=== PATIENT | female | born 1995 | race Two or more races ===

== ENCOUNTER 2017-11-23 03:42 | Emergency (ER) | payer OTHER ==
[2017-11-23 04:03] LABS: ABSOLUTE BASOPHILS # (AUTO) 0.1 10^3/uL (0.0-0.2); ABSOLUTE EOSINOPHILS # (AUTO) 0.2 10^3/uL (0.0-0.6); ABSOLUTE LYMPHOCYTES (AUTO) 1.8 10^3/uL (0.5-4.7); ABSOLUTE MONOCYTES (AUTO) 0.4 10^3/uL (0.1-1.4); ABSOLUTE NEUT (AUTO) 4.7 10^3/uL (1.7-8.2); BASOPHILS % (AUTO) 0.8 % (0-2); EOSINOPHILS % (AUTO) 2.3 % (0-6); HEMATOCRIT 42.8 % (36.0-47.0); HEMOGLOBIN 14.3 g/dL (12.0-15.5); LYMPHOCYTES % (AUTO) 25.2 % (13-45); MEAN CORPUSCULAR HEMOGLOBIN 29.9 pg (27.0-33.4); MEAN CORPUSCULAR HGB CONC 33.4 g/dL (32.0-36.0); MEAN CORPUSCULAR VOLUME 90 fl (80-97); MONOCYTES % (AUTO) 5.1 % (3-13); PLATELET COUNT 222 10^3/uL (150-450); RED BLOOD COUNT 4.79 10^6/uL (3.72-5.28); RED CELL DISTRIBUTION WIDTH 13.8 % (11.5-14.0); SEGMENTED NEUTROPHILS % (AUTO) 66.6 % (42-78); TOTAL CELLS COUNTED % (AUTO) 100 %; WHITE BLOOD COUNT 7.1 10^3/uL (4.0-10.5)
[2017-11-23 04:11] LABS: ACETAMINOPHEN < 10 ug/mL (10-30); ALANINE AMINOTRANSFERASE 19 U/L (9-52); ALBUMIN 4.6 g/dL (3.5-5.0); ALCOHOL 59 mg/dL (NONE DETECTED); ALKALINE PHOSPHATASE 50 U/L (38-126); ANION GAP 15 (5-19); ASPARTATE AMINO TRANSFERASE 30 U/L (14-36); BILIRUBIN,DIRECT 0.3 mg/dL (0.0-0.4); BILIRUBIN,TOTAL 0.7 mg/dL (0.2-1.3); BLOOD UREA NITROGEN 9 mg/dL (7-20); CALCIUM 9.9 mg/dL (8.4-10.2); CARBON DIOXIDE 21 mmol/L (22-30); CHLORIDE 108 mmol/L (98-107); GLUCOSE 108 mg/dL (75-110); POTASSIUM 3.7 mmol/L (3.6-5.0); SALICYLATE < 1.0 mg/dL (2.0-20.0); SODIUM 144.1 mmol/L (137-145)
--- NOTE | 2017-11-23 06:16 | ER Document Report ---
ED General - General Chief Complaint: Overdose Stated Complaint: POSSIBLE OVERDOSE Time Seen by Provider: 11/23/17 03:52 Notes: Patient is a 22-year-old female with a past medical history of depression, anxiety, PTSD who presents after a suicide attempt. EMS was contacted by her boyfriend who came home from work and found her to be intoxicated, somnolent. He found a suicide note prompting him to suspect a suicide attempt. Patient has a history of prior suicide attempts in the past, most recent plan was 6 weeks ago although she did not follow through. She states the trigger for tonight's events was her ex- and her having an argument. She denies any coingestions other than alcohol and Robaxin. TRAVEL OUTSIDE OF THE [place] IN LAST 30 DAYS: No Past Medical History - General Information source: Patient - Social History Smoking Status: Current Some Day Smoker Chew tobacco use (# tins/day): No Frequency of alcohol use: Occasional Drug Abuse: None Lives with: Spouse/Significant other Family History: Reviewed & Not Pertinent Patient has suicidal ideation: No Patient has homicidal ideation: No Renal/ Medical History: Denies: Hx Peritoneal Dialysis Review of Systems - Review of Systems Notes: Constitutional: Negative for fever. HENT: Negative for sore throat. Eyes: Negative for visual changes. Cardiovascular: Negative for chest pain. Respiratory: Negative for shortness of breath. Gastrointestinal: Negative for abdominal pain, vomiting or diarrhea. Genitourinary: Negative for dysuria. Musculoskeletal: Negative for back pain. Skin: Negative for rash. Neurological: Negative for headaches, weakness or numbness. 10 point ROS negative except as marked above and in HPI. Physical Exam - Vital signs Vitals: Resp BP Pulse Ox 13 127/81 H 99 11/23/17 03:48 11/23/17 03:48 11/23/17 03:48 Interpretation: Normal Notes: PHYSICAL EXAMINATION: GENERAL: Well-appearing, well-nourished and in no acute distress. HEAD: Atraumatic, normocephalic. EYES: Pupils equal round and reactive to light, extraocular movements intact, sclera anicteric, conjunctiva are normal. ENT: nares patent, oropharynx clear without exudates. Moist mucous membranes. NECK: Normal range of motion, supple without lymphadenopathy LUNGS: Breath sounds clear to auscultation bilaterally and equal. No wheezes rales or rhonchi. HEART: Regular rate and rhythm without murmurs ABDOMEN: Soft, nontender, normoactive bowel sounds. No guarding, no rebound. No masses appreciated. EXTREMITIES: Normal range of motion, no pitting or edema. No cyanosis. NEUROLOGICAL: No focal neurological deficits. Moves all extremities spontaneously and on command. PSYCH: Tearful, anxious SKIN: Warm, Dry, normal turgor, no rashes or lesions noted. Course - Re-evaluation Re-evalutation: 11/23/17 06:11 Patient presents after a deliberate overdose on 2500 mg of Robaxin as well as alcohol in a suicide attempt. The patient states that her intention behind taking his medications was to kill herself. She has a known history of depression, anxiety, PTSD none of which are currently being treated. Given the patient's intention behind her nonlethal ingestion of Robaxin she has been placed on involuntary commitment. Medical screening exam and labs are noted to be unremarkable. She is cleared for evaluation and disposition by psychology services in the morning. - Vital Signs Vital signs: Temp Pulse Resp BP Pulse Ox 99.1 F 88 19 118/76 99 11/23/17 03:53 11/23/17 03:53 11/23/17 05:01 11/23/17 05:00 11/23/17 05:01 - Laboratory Result Diagrams: 11/23/17 03:17 11/23/17 03:17 Laboratory results interpreted by me: 11/23/17 03:17 Chloride 108 H Carbon Dioxide 21 L Salicylates < 1.0 L Acetaminophen < 10 L - EKG Interpretation by Me Additional EKG results interpreted by me: 11/23/17 06:11 Sinus rhythm. Rate 82. No ST elevations or depressions. QTC is 411. Discharge - Discharge Clinical Impression: Suicide attempt, Alcohol abuse Deliberate medication overdose Qualifiers: Encounter type: initial encounter Qualified Code(s): T50.902A - Poisoning by unspecified drugs, medicaments and biological substances, intentional self-harm , initial encounter Condition: Fair
[2017-11-23 08:19] LABS: APPEARANCE,URINE CLEAR; BILIRUBIN,URINE SMALL (NEGATIVE); COLOR,URINE YELLOW; GLUCOSE, URINE NEGATIVE (NEGATIVE); KETONES,URINE NEGATIVE (NEGATIVE); LEUKOCYTE ESTERASE,URINE LARGE (NEGATIVE); NITRITE,URINE NEGATIVE (NEGATIVE); PROTEIN,URINE NEGATIVE (NEGATIVE); URINE SPECIFIC GRAVITY 1.015; UROBILINOGEN,URINE NEGATIVE mg/dL (<2.0)
[2017-11-23 08:36] LABS: URINE AMPHETAMINES SCREEN NEGATIVE; URINE BARBITURATES SCREEN NEGATIVE; URINE BENZODIAZEPINES SCREEN NEGATIVE; URINE COCAINE SCREEN NEGATIVE; URINE MARIJUANA (THC) SCREEN NEGATIVE; URINE METHADONE SCREEN NEGATIVE; URINE PHENCYCLIDINE SCREEN NEGATIVE
--- NOTE | 2017-11-23 09:56 | PSYCHOLOGICAL NOTE ---
Psych Note - Psych Note Psych Note: Reason for consult: intentional overdose Patient is a 22-year-old female with a past medical history of depression, anxiety, PTSD who presents after a suicide attempt of taking 5 tablets of 500mg Robaxin. Patient reports that she arrived to [facility] ED via EMS. She reports that she came to [facility] because she tried to kill herself by taking a muscle relaxer. She confirms she was drinking alcohol also. She reports that her soon-to-be ex- and her were arguing. She reports they a month and a half ago and have no children. She disclosed that he knows exactly what to say; "he said a lot to hurt me I just wanted to end." Patient reports that she did start going to see a therapist however she is only had one appointment and was right before the storm. She denies ever being on any medications or having any previous suicide attempts. She reports that she has thought about it in the past however is never done anything. She reports she is glad that she came to [facility] and denies current thoughts of self-harm or wanting to kill herself. Patient has lived in [place] for 3-1/2 years she is originally from [place] however reports that she enjoys living here and does have a current boyfriend by the name of Adarsh. Clinician spoke with patient's boyfriend Adarsh who discloses that he knows the patient has been depressed a lot lately and just wants her to get better. He reports he is known her for 6 months. Patient is alert and orientated to person, place, time and circumstance. Mood is euthymic with congruent affect. Patient confirms intentional overdose after an argument with her soon-to-be ex-. She denies current suicidal ideation. She denies homicidal ideation. Delusions are absent behaviors congruent with an intact reality based presentation i.e. organized and linear thought process. Eye contact is well-maintained. Conversational speech was within normal rate, tone and prosody. Intellectual abilities appear to be within the average range. Attention and concentration were good. Insight, judgment, impulse control are fair. Indication recommendations per [facility]'s contracted psychiatrist Dr. Denise ANGELO are as follows Celexa 20 mg daily 311 (F32.9) unspecified depressive disorder V61.10 (Z63.0) relationship distress with spouse Impression\\plan: Patient recommended for rescind of IVC and is cleared from acute psychiatric services. Patient no longer meets IVC criteria per [place] GS 122C. Patient openly engages with clinician discusses previous evening's events. She reports while she has had passive suicidal ideation a few times in the past she denies ever having attempted previous. Patient had already reached out to prior to for therapeutic services, she is recommended to continue to engage with outpatient mental health services. Medication recommendations have been provided. Dr. Pruitt was consulted and the care and management of this patient; attending physician is in agreement with recommendations and disposition.
--- NOTE | 2017-11-23 09:59 | ER Document Report ---
Doctor's Note Notes: 11/23/17 09:57 Rounding Note: Patient seen and evaluted by myself. Patient here for suicide attempt. She ingested alcohol and robaxin. Today, Vital signs are stable. No issues overnight. Patient is resting comfortably in the bed. She has no complaints. Denies current suicidal or homicidal ideations. She also denies delusion or hallucinations. Patient is medically cleared for discharge or transfer. Behavioral health evaluated the patient. Comfortable with discharge later today.
[2017-11-23 12:06] VITALS: BP 116/77
--- NOTE | 2017-11-23 14:40 | EKG REPORT ---
SEVERITY:- NORMAL ECG - SINUS RHYTHM : Confirmed by: Georgette Boggs MD 23-Nov-2017 14:39:21
== END 2017-11-23 12:03 | disposition home or self-care (01) ==
LOC: ER 03:42
DX: T42.8X2A Poisoning by antiparkinsonism drugs and other central muscle-tone depressants, intentional self-harm, initial encounter (principal); T51.92XA Toxic effect of unspecified alcohol, intentional self-harm, initial encounter; Y92.009 Unspecified place in unspecified non-institutional (private) residence as the place of occurrence of the external cause; F32.9 Major depressive disorder, single episode, unspecified; Z63.0 Problems in relationship with spouse or partner; F17.200 Nicotine dependence, unspecified, uncomplicated
CPT/HCPCS: 36415; 80053; 80307; 81001; 84703; 85025; 93005; 93010; 99284

== ENCOUNTER 2018-07-15 22:02 | Emergency (ER) | payer OTHER ==
[2018-07-15 22:39] LABS: ABSOLUTE BASOPHILS # (AUTO) 0.1 10^3/uL (0.0-0.2); HEMOGLOBIN 14.6 g/dL (12.0-15.5); MEAN CORPUSCULAR VOLUME 89 fl (80-97); TOTAL CELLS COUNTED % (AUTO) 100 %
[2018-07-15 22:44] LABS: ABSOLUTE EOSINOPHILS # (AUTO) 0.1 10^3/uL (0.0-0.6); ABSOLUTE LYMPHOCYTES (AUTO) 2.5 10^3/uL (0.5-4.7); ABSOLUTE MONOCYTES (AUTO) 0.4 10^3/uL (0.1-1.4); ABSOLUTE NEUT (AUTO) 5.3 10^3/uL (1.7-8.2); BASOPHILS % (AUTO) 0.7 % (0-2); EOSINOPHILS % (AUTO) 1.7 % (0-6); LYMPHOCYTES % (AUTO) 29.5 % (13-45); MEAN CORPUSCULAR HEMOGLOBIN 29.7 pg (27.0-33.4); MEAN CORPUSCULAR HGB CONC 33.2 g/dL (32.0-36.0); MONOCYTES % (AUTO) 4.2 % (3-13); PLATELET COUNT 267 10^3/uL (150-450); RED BLOOD COUNT 4.92 10^6/uL (3.72-5.28); RED CELL DISTRIBUTION WIDTH 13.8 % (11.5-14.0); SEGMENTED NEUTROPHILS % (AUTO) 63.9 % (42-78); WHITE BLOOD COUNT 8.4 10^3/uL (4.0-10.5)
--- NOTE | 2018-07-15 22:59 | ER Document Report ---
ED General - General Stated Complaint: POSSIBLE OVERDOSE Time Seen by Provider: 07/15/18 22:29 Notes: Patient is a 22-year-old female with past medical history of dysrhythmias that is required ablations in the past, prior psychiatric history of depression and previous suicide attempts, most recent suicide attempt in October 2017 who presents after an intentional overdose on unknown quantity of metoprolol. The patient states that she did this as a suicide attempt. Notes that she is suicidal on a daily basis and that this action was spontaneous today. She disc losed to her friend who subsequently contacted EMS who brought the patient here to the emergency department. Patient denies active suicidal ideation at this time. She does however state that she does not regret her decision tonight to attempt on her life. She states that she frequently feels hopeless, does not have significant enjoyment in life. States that she has tried medical therapies in the past for her depression which have been unhelpful. Does not currently have a mental health care provider. No obvious trigger for today's episode. No obvious relieving factor. Denies medical complaints. Denies any coingestions or additional mechanisms while she is tried to harm herself this evening. TRAVEL OUTSIDE OF THE [place] IN LAST 30 DAYS: No - Related Data Allergies/Adverse Reactions: No Known Allergies Allergy (Verified 11/23/17 07:51) Past Medical History - General Information source: Patient - Social History Smoking Status: Never Smoker Frequency of alcohol use: Occasional Drug Abuse: None Lives with: Friend Family History: Reviewed & Not Pertinent Renal/ Medical History: Denies: Hx Peritoneal Dialysis Review of Systems - Review of Systems Notes: Constitutional: Negative for fever. HENT: Negative for sore throat. Eyes: Negative for visual changes. Cardiovascular: Negative for chest pain. Respiratory: Negative for shortness of breath. Gastrointestinal: Negative for abdominal pain, vomiting or diarrhea. Genitourinary: Negative for dysuria. Musculoskeletal: Negative for back pain. Skin: Negative for rash. Neurological: Negative for headaches, weakness or numbness. 10 point ROS negative except as marked above and in HPI. Physical Exam - Vital signs Vitals: BP 118/74 07/15/18 22:29 Interpretation: Normal Notes: PHYSICAL EXAMINATION: GENERAL: Well-appearing, well-nourished and in no acute distress. HEAD: Atraumatic, normocephalic. EYES: Pupils equal round and reactive to light, extraocular movements intact, sclera anicteric, conjunctiva are normal. ENT: nares patent, oropharynx clear without exudates. Moist mucous membranes. NECK: Normal range of motion, supple without lymphadenopathy LUNGS: Breath sounds clear to auscultation bilaterally and equal. No wheezes rales or rhonchi. HEART: Regular rate and rhythm without murmurs ABDOMEN: Soft, nontender, normoactive bowel sounds. No guarding, no rebound. No masses appreciated. EXTREMITIES: Normal range of motion, no pitting or edema. No cyanosis. NEUROLOGICAL: No focal neurological deficits. Moves all extremities spontaneously and on command. PSYCH: Somewhat depressed mood and affect. SKIN: Warm, Dry, normal turgor, no rashes or lesions noted. Course - Re-evaluation Re-evalutation: 07/15/18 22:53 Patient presents after an intentional overdose on unknown quantity of metoprolol, from what she is describing maximally 250 mg. This was taken greater than 3 hours prior to the time of presentation and patient is not noted to have any bradycardia or hypotension. Poison control have been contacted by EMS. I suspect the patient may not have taken as much as she is implying given the absence of any bradycardia or hypotension despite allegedly taking such a large dose of metoprolol. The patient denies any additional coingestions. She is awake, alert, oriented, denies active suicidal ideation but clearly made a serious attempt on her life this evening by her report. The patient has been placed on an IVC hold by me. Given that patient has not demonstrated any hypotension or bradycardia to this point I think it is unlikely that she will do so. She will remain on monitor for the next several hours to ensure that there are no changes in hemodynamics. Labs are pending. 07/16/18 03:24 Patient has remained without any bradycardia or hypotension. Labs unremarkable. Notable only for EtOH elevation. She is currently cleared for evaluation and disposition by [facility] in the morning. - Vital Signs Vital signs: Temp Pulse Resp BP Pulse Ox 98.9 F 18 124/77 100 07/15/18 23:01 07/15/18 23:01 07/15/18 23:01 07/15/18 23:01 - Laboratory Result Diagrams: 07/15/18 21:23 07/15/18 21:23 Laboratory results interpreted by me: 07/15/18 07/16/18 21:23 00:13 Glucose 73 L AST 41 H Total Protein 8.4 H Urine Blood MODERATE H Salicylates < 1.0 L Acetaminophen < 10 L - EKG Interpretation by Me Additional EKG results interpreted by me: 07/15/18 22:59 Sinus rhythm, rate 68. No ST elevations or depressions. QTC is 430. Discharge - Discharge Clinical Impression: Suicide attempt by beta isidro overdose Qualifiers: Encounter type: initial encounter Qualified Code(s): T44.7X2A - Poisoning by beta-adrenoreceptor antagonists, intentional self-harm, initial encounter Depression Qualifiers: Depression Type: unspecified Qualified Code(s): F32.9 - Major depressive disorder, single episode, unspecified Condition: Fair Disposition: PSYCH HOSP/UNIT
[2018-07-15 23:07] LABS: ALANINE AMINOTRANSFERASE 23 U/L (9-52); ALBUMIN 4.8 g/dL (3.5-5.0); ALCOHOL 151 mg/dL (NONE DETECTED); ALKALINE PHOSPHATASE 54 U/L (38-126); ANION GAP 13 (5-19); ASPARTATE AMINO TRANSFERASE 41 U/L (14-36); BILIRUBIN,DIRECT 0.1 mg/dL (0.0-0.4); BILIRUBIN,TOTAL 0.8 mg/dL (0.2-1.3); BLOOD UREA NITROGEN 10 mg/dL (7-20); CALCIUM 9.6 mg/dL (8.4-10.2); CARBON DIOXIDE 26 mmol/L (22-30); CHLORIDE 105 mmol/L (98-107); GLUCOSE 73 mg/dL (75-110); POTASSIUM 4.5 mmol/L (3.6-5.0); TOTAL PROTEIN 8.4 g/dL (6.3-8.2)
[2018-07-15 23:08] LABS: ACETAMINOPHEN < 10 ug/mL (10-30); SALICYLATE < 1.0 mg/dL (2.0-20.0)
--- NOTE | 2018-07-15 23:47 | EKG REPORT ---
SEVERITY:- OTHERWISE NORMAL ECG - SINUS RHYTHM - CORONARY SINUS RHYTHM : Confirmed by: Gallito Ivey MD 15-Jul-2018 23:47:00
[2018-07-16 00:54] LABS: APPEARANCE,URINE CLEAR; BILIRUBIN,URINE NEGATIVE (NEGATIVE); COLOR,URINE STRAW; GLUCOSE, URINE NEGATIVE (NEGATIVE); KETONES,URINE NEGATIVE (NEGATIVE); LEUKOCYTE ESTERASE,URINE NEGATIVE (NEGATIVE); NITRITE,URINE NEGATIVE (NEGATIVE); PROTEIN,URINE NEGATIVE (NEGATIVE); URINE SPECIFIC GRAVITY 1.006; UROBILINOGEN,URINE NEGATIVE mg/dL (<2.0)
[2018-07-16 01:15] LABS: URINE AMPHETAMINES SCREEN NEGATIVE; URINE BARBITURATES SCREEN NEGATIVE; URINE BENZODIAZEPINES SCREEN NEGATIVE; URINE COCAINE SCREEN NEGATIVE; URINE MARIJUANA (THC) SCREEN NEGATIVE; URINE METHADONE SCREEN NEGATIVE; URINE PHENCYCLIDINE SCREEN NEGATIVE
--- NOTE | 2018-07-16 09:28 | ER Document Report ---
Doctor's Note Notes: 07/16/18 09:27 22-year-old female with past medical history of suicide attempt in the past with blood alcohol level as recorded after overdosing intentionally on metoprolol. Patient has been monitored for an excessive period of time since the overdose with no bradycardia or low blood pressure. Awaiting psychiatric evaluation and disposition. Vital signs are stable.
[2018-07-16 13:38] VITALS: BP 108/61
--- NOTE | 2018-07-16 14:00 | PSYCHOLOGICAL NOTE ---
Psych Note - Psych Note Date seen by psych provider: 07/16/18 Psych Note: Reason for Consult: OD of Metroprolol Contact Permissions: Boyfriend at bedside Patient is a 22 year old female who presented to the ED last night via EMS for OD. Diagnosis: Overdose 311 (F32.9) Unspecified Depressive Disorder Impression/Plan: Recommendation to complete full IVC given patient admitted to OD of Metroprolol after arguing with boyfriend, he left, she was upset and she s pontaneously took medication. She also had an OD of Metroprolol October 2017. Consulted with Dr. Pruitt regarding the management and care of patient. ED Physician in agreement with recommendations.
== END 2018-07-16 18:37 ==
LOC: ER 22:02
DX: T44.7X1A Poisoning by beta-adrenoreceptor antagonists, accidental (unintentional), initial encounter (principal); F32.9 Major depressive disorder, single episode, unspecified
CPT/HCPCS: 36415; 80053; 80307; 81001; 84703; 85025; 93005; 93010; 99285

== ENCOUNTER 2019-07-12 12:45 | Emergency (ER) | payer BC, OTHER ==
[2019-07-12 12:54] VITALS: BP 112/54
--- NOTE | 2019-07-12 13:05 | ER Document Report ---
ED Medical Screen (RME) - General Chief Complaint: Dog Bite Stated Complaint: DOG BITE/LEFT ARM Time Seen by Provider: 07/12/19 12:55 Primary Care Provider: TARIQ BATRES JR, MD [Primary Care Provider] - Follow up as needed Mode of Arrival: Ambulatory Information source: Patient Notes: Patient is an otherwise healthy 23-year-old female presenting after being bitten by 1 of her dogs. She reports 2 of her dogs were fighting, she was trying to break them out when her [place]olese pastor bit her in the left forearm. Patient reports she has had a tetanus shot within the last 5 years. She states that her dog's immunizations are up-to-date. She reports that EMS was on scene and gave her a shot of pain medication. Exam: Two gaping open wounds to left upper forearm, several puncture wounds also noted. Pain with any manipulation of the forearm. Strong radial pulse. Cap refill less than 3 seconds. I have greeted and performed a rapid initial assessment of this patient. A comprehensive ED assessment and evaluation of the patient, analysis of test results and completion of the medical decision making process will be conducted by additional ED providers. I have specifically instructed the patient or family members with the patient to immediately return to any nursing staff should anything change in the patient's condition or with their chief complaint. TRAVEL OUTSIDE OF THE [place] IN LAST 30 DAYS: No - Related Data Allergies/Adverse Reactions: No Known Allergies Allergy (Verified 11/23/17 07:51) Past Medical History Renal/ Medical History: Denies: Hx Peritoneal Dialysis Past Surgical History: Reports: Hx Cardiac Surgery - ablation Physical Exam - Vital signs Vitals: Temp Pulse Resp BP Pulse Ox 98.2 F 79 17 112/54 L 98 07/12/19 12:52 07/12/19 12:52 07/12/19 12:52 07/12/19 12:52 07/12/19 12:52 Course - Vital Signs Vital signs: Temp Pulse Resp BP Pulse Ox 98.2 F 79 17 112/54 L 98 07/12/19 12:52 07/12/19 12:52 07/12/19 12:52 07/12/19 12:52 07/12/19 12:52 Doctor's Discharge - Discharge Referrals: TARIQ BATRES JR, MD [Primary Care Provider] - Follow up as needed
--- NOTE | 2019-07-12 14:04 | RADIOLOGY REPORT (SQ) ---
EXAM DESCRIPTION: ELBOW LEFT OVER 2 VIEWS IMAGES COMPLETED DATE/TIME: 07/12/2019 1:51 pm REASON FOR STUDY: dog bite COMPARISON: None. NUMBER OF VIEWS: Three views. TECHNIQUE: AP, lateral, and single oblique radiographic images acquired of the left elbow. LIMITATIONS: None. FINDINGS: MINERALIZATION: Normal. BONES: No acute fracture or dislocation. No worrisome bone lesions. JOINT: No effusion. SOFT TISSUES: No soft tissue swelling. No foreign body. OTHER: No other significant finding. IMPRESSION: NEGATIVE STUDY OF THE LEFT ELBOW. NO RADIOGRAPHIC EVIDENCE OF ACUTE INJURY. TECHNICAL DOCUMENTATION: JOB ID: [id number] 2010 [employer]- All Rights Reserved Reading location - IP/workstation name: [email or web address]
[2019-07-12] MEDS ORDERED: HYDROCODONE/ACETAMINOPHEN 5-325 MG TABLET PO ONE (14:07)
[2019-07-12] MEDS ORDERED: DIAZEPAM 2 MG TABLET PO ONE (14:07)
[2019-07-12] MEDS ORDERED: LIDOCAINE 1%/EPINEPHRINE INJ 20 ML VIAL INJ ONE (14:08)
--- NOTE | 2019-07-12 14:09 | ER Document Report ---
ED Animal Bite - General Chief Complaint: Dog Bite Stated Complaint: DOG BITE/LEFT ARM Time Seen by Provider: 07/12/19 12:55 Primary Care Provider: TARIQ BATRES JR, MD [NO LOCAL MD] - Follow up in 1 week Mode of Arrival: Ambulatory Notes: Patient is a 23-year-old female who presents the emergency department after a dog bite to her left elbow. Patient states that the dog bite happened by her [place] at home. Patient states that she was trying to break up a dog fight between HER-2 dogs. Her dog is up-to-date on their vaccination. Patient is up-to-date on her tetanus vaccine. Patient is able to move her hand. Patient is right-hand dominant. TRAVEL OUTSIDE OF THE [place] IN LAST 30 DAYS: No - Related Data Allergies/Adverse Reactions: No Known Allergies Allergy (Verified 11/23/17 07:51) Past Medical History - General Information source: Patient - Social History Smoking Status: Never Smoker Frequency of alcohol use: Social Drug Abuse: None Family History: Reviewed & Not Pertinent Patient has homicidal ideation: No Renal/ Medical History: Denies: Hx Peritoneal Dialysis Past Surgical History: Reports: Hx Cardiac Surgery - ablation Review of Systems - Review of Systems Notes: REVIEW OF SYSTEMS: CONSTITUTIONAL : Denies recent illness. Denies recent unintentional weight loss. Denies fever, chills, or sweats. EENT: Denies eye, ear, throat, or mouth pain, discharge, or symptoms. Denies nasal or sinus congestion. CARDIOVASCULAR: Denies chest pain. RESPIRATORY: Denies shortness of breath, cough, congestion, difficulty breathing, or wheezing. GASTROINTESTINAL: Denies nausea, vomiting, and diarrhea. Denies abdominal pain. Denies constipation. GENITOURINARY: Denies difficulty urinating, burning, blood in urine, urgency or frequency. MUSCULOSKELETAL: Denies neck and back pain. See HPI. SKIN: See HPI. HEMATOLOGIC : Denies easy bruising or bleeding. LYMPHATIC: Denies swollen, painful, enlarged glands. NEUROLOGICAL: Denies no numbness or tingling denies weakness. Denies headache. Denies altered mental status. Denies alteration in speech. PSYCHIATRIC: Denies stress, anxiety, alteration in sleep patterns, or depression. All other systems reviewed and negative. Physical Exam - Vital signs Vitals: Temp Pulse Resp BP Pulse Ox 98.2 F 79 17 112/54 L 98 07/12/19 12:52 07/12/19 12:52 07/12/19 12:52 07/12/19 12:52 07/12/19 12:52 - Notes Notes: PHYSICAL EXAMINATION: GENERAL: Appears well, healthy, well-nourished, no acute distress. HEAD: Normocephalic, atraumatic. EYES: PERRL, conjunctiva normal, all extraocular movements intact, sclera nonicteric ENT: Moist mucous membranes. NECK: Supple, no noticeable swelling, redness, rash. Normal range of motion. LUNGS: Equal breath sounds bilaterally and clear to auscultation. No wheezes rales or rhonchi. CARDIOVASCULAR: S1-S2, regular rate, regular rhythm. Radial pulses 2+, normal. ABDOMEN: Normoactive bowel sounds. Soft, nontender, no guarding, no rebound tenderness, and no masses palpated. EXTREMITIES: Normal strength and range of motion, no pitting or edema. No cyanosis. NEUROLOGICAL: Moves all extremities upon command. Strength 5/5 in all extremities. PSYCH: Normal mood, normal affect. SKIN: Warm, dry. Multiple puncture dog bite wounds and lacerations to left elbow/forarm. Normal skin turgor. Course - Re-evaluation Re-evalutation: There was 1 large dog bite wound and other ones were puncture wounds. The ones that I approximated, were left slightly open for any bacteria to drain. Patient will be started on Augmentin. X-ray is unremarkable. Patient is able to flex and extend all digits with no difficulty. See procedure note. Capillary refill less than 3 seconds. Radial pulse 2+. Patient will also be placed in a sling. See procedure note. Follow-up precautions were given. Verbal discharge instructions were given to the patient. They verbalized understanding. They are stable for discharge. - Vital Signs Vital signs: Temp Pulse Resp BP Pulse Ox 98.2 F 79 17 112/54 L 98 07/12/19 12:59 07/12/19 12:52 07/12/19 12:52 07/12/19 12:52 07/12/19 12:52 Procedures - Laceration/Wound Repair Left Arm Wound length (cm): 5 - mulitple areas Wound's Depth, Shape: Superficial Laceration pre-procedure: Sterile PPE donned, Sterile drapes applied, Shur-Clens applied Anesthetic type: 1% Lidocaine w/epi Volume Anesthetic (mLs): 15 Wound explored: Clean, No foreign body removed Irrigated w/ Saline (mLs): 500 Wound Debrided: Minimal Wound Repaired With: Sutures Suture Size/Type: 5:0, Nylon Post-procedure wound care: Sterile dressing applied, Sling applied Post-procedure NV exam normal: Yes Complications: No Adult Front & Back picture: 1 - multiple dog bit lacerations and punctures Discharge - Discharge Clinical Impression: Dog bite Qualifiers: Encounter type: initial encounter Qualified Code(s): W54.0XXA - Bitten by dog, initial encounter Condition: Stable Disposition: HOME, SELF-CARE Additional Instructions: Please monitor very closely for any signs of infection from your dog bite including spreading redness from the area, pus from the wound, or worsening pain. Clean the area twice daily with soap and water and then apply topical antibiotic ointment. Please take all the antibiotics that you were prescribed until they are gone. Follow-up with your primary care physician as needed. Use a sling to help with pain. Take pain medication as needed. Have your sutures removed in 1 week. Prescriptions: Amoxicillin/Potassium Clav [Augmentin 875-125 Tablet] 1 tab PO BID #14 tab Hydrocodone/Acetaminophen [[place] 5-325 mg Tablet] 1 tab PO Q4H PRN #12 tablet PRN Reason: Referrals: TARIQ BATRES JR, MD [NO LOCAL MD] - Follow up in 1 week
[2019-07-12] MEDS ORDERED: AMOXICILLIN TR/POT CLAVULANATE 875-125 MG TAB PO ONE (16:10)
== END 2019-07-12 17:15 | disposition home or self-care (01) ==
LOC: ER 12:45
DX: S51.052A Open bite, left elbow, initial encounter (principal); W54.0XXA Bitten by dog, initial encounter; Y92.009 Unspecified place in unspecified non-institutional (private) residence as the place of occurrence of the external cause
CPT/HCPCS: 99283; 73080; 12002; J3490 ×3